=== PATIENT | female | born 1985 | race Caucasian/White ===

== ENCOUNTER 2024-02-26 07:42 | Emergency (ER) | payer OTHER ==
[~2024-02-26] VITALS: Ht 165.1 cm; Wt 68.0 kg
[2024-02-26 07:47] VITALS: BP 117/77; TEMP 98.6; O2SAT 100
[2024-02-26] MEDS: LIDOCAINE HCL 1% 20ML VIAL (Pyxis) INJ INFIL ONE (09:31)
[2024-02-26] MEDS: IBUPROFEN 600MG TABLET PO ONE (09:32)
[2024-02-26 09:56] VITALS: PULSE 88; RESP 18
== END 2024-02-26 11:50 | disposition home or self-care (01) ==
LOC: ER 09:05
DX: S60.445A External constriction of left ring finger, initial encounter (principal); W49.04XA Ring or other jewelry causing external constriction, initial encounter; Y93.89 Activity, other specified; Y92.89 Other specified places as the place of occurrence of the external cause; Y99.8 Other external cause status
CPT/HCPCS: 99284; 73130; J3490